=== PATIENT | female | born 1995 | race Caucasian/White ===

== ENCOUNTER 2016-05-24 07:29 | Inpatient (IN) | payer BC, MEDICAID ==
[2016-05-24] MEDS ORDERED: Methylergonovine 0.2 MG/1 ML Amp IM PRN (08:12)
[2016-05-24] MEDS ORDERED: Misoprostol 400 MCG (4 X 100 MCG TAB) RECTAL PRN (08:12)
[2016-05-24] MEDS ORDERED: Sodium Chloride 0.9% 10 ML Syringe FLUSH PRN ×2 (08:12→16:59)
[2016-05-24] MEDS ORDERED: fentaNYL 100 MCG/2 ML SDV IVPUSH PRN (08:12)
[2016-05-24] MEDS ORDERED: Lidocaine 1% 30 ML SDV INJECT PRN (08:12)
[2016-05-24] MEDS ORDERED: Lactated Ringers 500 ML IV ONE (08:12)
[2016-05-24] MEDS ORDERED: Acetaminophen 325 MG Tab PO PRN ×2 (08:12→16:59)
[2016-05-24] MEDS ORDERED: Ondansetron 4 MG/2 ML SDV IV PRN (08:12)
[2016-05-24] MEDS ORDERED: Carboprost Tromethamine 250 MCG/1 ML Amp IM PRN (08:12)
[2016-05-24] MEDS ORDERED: Lactated Ringers 1,000 ML IV SCH (08:15)
--- NOTE | 2016-05-24 08:22 | PCM.LDHP ---
<RayBritta duran - Last Filed: 05/24/16 08:14> L&D History of Present Illness - General Date of Service: 05/24/16 Admit Problem/Dx: Admission Diagnosis/Problem Admission Diagnosis/Problem Source of Information: Patient History Limitations: Reports: No limitations - History of Present Illness Introduction:: Patient is a 20 year old that presents today at 40 and 6 for induction of labor by pitocin. Yesterday at clinic her SVE: Vertex presentation, 3.5 cm, 80% effacement, -2 station. She is currently not feeling any change since yesterday nor is she feeling contractions, We will hold off on rechecking her until the pitocin has been started. 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5 Used Tobacco, but Quit: No Second Hand Smoke Exposure: Yes - Caffeine Use Caffeine Use: Reports: Soda - Recreational Drug Use Recreational Drug Use: No H&P Review of Systems - Review of Systems: Review Of Systems: See Below General: Denies: fever, chills HEENT: Reports: no symptoms Pulmonary: Denies: Shortness of Breath, Wheezing, Cough Cardiovascular: Reports: no symptoms Gastrointestinal: Denies: Constipation (out of the norm), Diarrhea, Nausea, Vomiting Genitourinary: Reports: no symptoms Musculoskeletal: Reports: no symptoms Skin: Reports: no symptoms Psychiatric: Reports: no symptoms L&D Exam - Exam Exam: See Below - Vital Signs Weight: 81.647 kg - OB Specific Contraction Intensity: at this time can not feel them movement: active heart tones: present - Exam General: alert, oriented, cooperative HEENT: Conjunctiva clear, EOMI, Pupils equal Neck: supple Lungs: Clear to auscultation, Normal respiratory effort Cardiovascular: regular rate, regular rhythm, normal S1, normal S2 Abdomen: normal bowel sounds Rectal Exam: Deferred Genitourinary: Deferred Back Exam: normal inspection, full range of motion Extremities: normal inspection. No: edema Skin: warm, dry, intact Neurological: cranial nerves intact (grossly) Psychiatric: alert, normal affect, normal mood - Problem List (1) SNOMED Code(s): 58265282 ICD Code: Z33.1 - STATE, INCIDENTAL Status: Acute Current Visit : Yes Qualifiers: Weeks of gestation: 40 weeks Qualified Code(s): Z3A.40 - 40 weeks gestation of (2) Rubella immune SNOMED Code(s): 570654536 ICD Code: Z78.9 - OTHER SPECIFIED HEALTH STATUS Status: Acute Current Visit: Yes (3) History of anxiety disorder SNOMED Code(s): 314474644 ICD Code: Z86.59 - PERSONAL HISTORY OF OTHER MENTAL AND BEHAVIORAL DISORDERS Status: Acute Current Visit: Yes (4) Hx of herpes genitalis SNOMED Code(s): 793809299 ICD Code: Z86.19 - PERSONAL HISTORY OF OTHER INFECTIOUS AND PARASITIC DISEASES Status: Acute Current Visit: Yes (5) Susceptible to varicella (non-immune), currently SNOMED Code(s): 997822641, 708923729 ICD Code: O09.899 - SUPERVISION OF OTHER HIGH RISK PREGNANCIES, UNSP TRIMESTER; Z28.3 - UNDERIMMUNIZATION STATUS Status: Acute Current Visit: Yes (6) Blood type O+ SNOMED Code(s): 235328773 ICD Code: Z67.40 - TYPE O BLOOD, RH POSITIVE Status: Acute Current Visit : Yes (7) Current every day smoker SNOMED Code(s): 272802125, 667708107 ICD Code: F17.200 - NICOTINE DEPENDENCE, UNSPECIFIED, UNCOMPLICATED Status : Acute Current Visit: Yes Problem List Initiated/Reviewed/Updated: Yes Orders Last 24hrs: Active Orders 24 hr Category Date Time Status CBC W/O DIFF,HEMOGRAM [HEME] Routine Lab 05/24/16 08:05 Received Assessment/Plan Comment:: Assessment 20 y.o. at 40w5d presenting for induction of labor via pitocin Plan: Routine intrapartum cares Pitocin induction per unit protocols AROM when able. <Josette Hunt - Last Filed: 05/24/16 09:35> L&D History of Present Illness - General Admit Problem/Dx: Patient Status Order with Admit Dx/Problem 05/24/16 08:12 Patient Status [ADT] Routine Admission Diagnosis/Problem Admission Diagnosis/Problem care L&D Exam - Vital Signs Vital Signs: Last Vital Signs Temp 36.3 C 05/24/16 07:40 Pulse 109 H 05/24/16 09:00 Resp 16 05/24/16 09:00 BP 126/74 05/24/16 09:00 Pulse Ox 98 05/24/16 07:40 - Patient Data Lab Results last 24 hrs: Laboratory Results - last 24 hr 05/24/16 Range/Units 08:05 WBC 9.5 (5.0-10.0) 10^3/uL RBC 4.60 (4.2-5.4) 10^6/uL Hgb 12.8 (12.0-16.0) g/dL Hct 38.5 (37.0-47.0) % MCV 83.7 (80-100) fL MCH 27.8 (27.0-34.0) pg MCHC 33.2 (33.0-35.0) g/dL Plt Count 196 (150-450) 10^3/uL Result Diagrams: 05/24/16 08:05 Orders Last 24hrs: Active Orders 24 hr Category Date Time Status Patient Status [ADT] Routine ADT 05/24/16 08:12 Active Communication Order [RC] ASDIRECTED Care 05/24/16 08:12 Active Communication Order [RC] ASDIRECTED Care 05/24/16 08:15 Active Communication Order [RC] ASDIRECTED Care 05/24/16 08:15 Active Communication Order [RC] ASDIRECTED Care 05/24/16 08:15 Active Communication Order [RC] ASDIRECTED Care 05/24/16 08:15 Active Heart Tones [RC] PER UNIT ROUTINE Care 05/24/16 08:12 Active Notify Provider Vital Signs OB [RC] ASDIRECTED Care 05/24/16 08:12 Active Notify Provider [RC] PRN Care 05/24/16 08:12 Active Notify Provider [RC] PRN Care 05/24/16 08:15 Active Notify Provider [RC] STAT Care 05/24/16 08:15 Active Pump Management, Intrathecal [RC] ASDIRECTED Care 05/24/16 08:12 Active Up ad Yanelis [RC] ASDIRECTED Care 05/24/16 08:12 Active Vaginal Exam [RC] PRN Care 05/24/16 08:15 Active Vital Signs [RC] PER UNIT ROUTINE Care 05/24/16 08:12 Active Clear Liquid Diet [DIET] Diet 05/24/16 Breakfast Active Acetaminophen [Tylenol] Med 05/24/16 08:12 Active 650 mg PO Q4H PRN Carboprost Tromethamine [Hemabate DS] Med 05/24/16 08:12 Active 250 mcg IM ASDIRECTED PRN Lactated Ringers [Ringers, Lactated] 1,000 ml Med 05/24/16 08:15 Active IV ASDIRECTED Lidocaine 1% [Xylocaine-MPF 1%] Med 05/24/16 08:12 Active 10 ml INJECT ASDIRECTED PRN Methylergonovine [Methergine] Med 05/24/16 08:12 Active 0.2 mg IM ASDIRECTED PRN Misoprostol [Cytotec] Med 05/24/16 08:12 Active 800 mcg RECTAL ASDIRECTED PRN Ondansetron [Zofran] Med 05/24/16 08:12 Active 4 mg IV Q4H PRN Oxytocin/Normal Saline [Pitocin in NS 30 UNIT/500 ML] Med 05/24/16 08:15 Active 30 unit in 500 ml IV TITRATE Sodium Chloride 0.9% [Saline Flush] Med 05/24/16 08:12 Active 10 ml FLUSH ASDIRECTED PRN fentaNYL [Sublimaze] Med 05/24/16 08:12 Active 50 mcg IVPUSH Q1H PRN Saline Lock Insert [OM.PC] Routine Oth 05/24/16 08:12 Ordered Resuscitation Status Routine Resus Stat 05/24/16 08:12 Ordered Medication Orders Acetaminophen (Tylenol) 650 mg PO Q4H PRN PRN Reason: Pain (Mild 1-3) and fever Carboprost Tromethamine (Hemabate Ds) 250 mcg IM ASDIRECTED PRN PRN Reason: HEMORRHAGE Fentanyl (Sublimaze) 50 mcg IVPUSH Q1H PRN PRN Reason: Pain (moderate 4-6) Lactated Ringer's (Ringers, Lactated) 1,000 mls @ 125 mls/hr IV ASDIRECTED EMILY Last Admin: 05/24/16 08:40 Dose: 125 mls/hr Oxytocin/Sodium Chloride (Pitocin In Ns 30 Unit/500 Ml) 30 unit in 500 mls @ 2 mls/hr IV TITRATE EMILY; 2 MUNITS/MIN PRN Reason: Protocol Last Titration: 05/24/16 09:17 Dose: 4 munits/min, 4 mls/hr Admin: 05/24/16 08:41 Dose: 2 munits/min, 2 mls/hr Lidocaine HCl (Xylocaine-Mpf 1%) 10 ml INJECT ASDIRECTED PRN PRN Reason: Perineal Repair Methylergonovine Maleate (Methergine) 0.2 mg IM ASDIRECTED PRN PRN Reason: Hemorrhage Misoprostol (Cytotec) 800 mcg RECTAL ASDIRECTED PRN PRN Reason: Hemorrhage Ondansetron HCl (Zofran) 4 mg IV Q4H PRN PRN Reason: Nausea/Vomiting Sodium Chloride (Saline Flush) 10 ml FLUSH ASDIRECTED PRN PRN Reason: Keep Vein Open Assessment/Plan Comment:: Agree with student assessment and plan. Induction for postdates . Anticipate vaginal delivery. Will proceed with expectant management. Josette Hunt MD
[2016-05-24] MEDS: Oxytocin/Normal Saline 30 UNIT/500 ML BAG IV SCH ×2 (08:41→17:54)
[2016-05-24] MEDS ORDERED: fentaNYL 100 MCG/2 ML SDV IVPUSH ONE ×2 (14:50→16:35)
[2016-05-24] MEDS: Calcium Carbonate 500 MG Tab.Chew PO PRN ×2 (15:01→17:27)
[2016-05-24] MEDS ORDERED: ceFAZolin 2 GM in Premix Bag 1 BAG IV ONE (16:46)
[2016-05-24] MEDS ORDERED: Acetaminophen/HYDROcodone 325-10 MG Tab PO PRN (16:59)
[2016-05-24] MEDS ORDERED: Simethicone 80 MG Tab.Chew PO PRN (16:59)
[2016-05-24] MEDS ORDERED: Oxytocin 10 Units/1 ML SDV IM PRN (16:59)
[2016-05-24] MEDS ORDERED: Benzocaine/Menthol 20%-0.5% Spray 56 GM Canister TOP PRN (16:59)
--- NOTE | 2016-05-24 17:08 | PCM.DEL ---
L & D Note - General Info Date of Service: 05/24/16 Mother's Due Date: 05/19/16 - Delivery Note Labor: augmented by ARM, induced by oxytocin Delivery Outcome: Livebirth Delivery Method: Spontaneous Vaginal Delivery Presentation: Left Occiput Anterior (AKUA) Nuchal cord: present, reduced Anesthesia Type: None Amniotic Fluid Description: Clear Episiotomy Type: None Laceration: none Placenta: intact, manual removal Cord: 3 vessels Estimated blood loss: 800 Resuscitation needed: No [place]: stimulated Score 1 min: 7 Score 5 min: 8 Post Delivery Events: Retained Placenta Delivery Comments (Free Text/Narrative):: 20-year-old presented to L&D around 0800 today for induction of labor for postdates . Her cervix yesterday was 3.5/80/-2. Pitocin was started for induction of labor. Around 1200, membranes were artificially ruptured for small amount of clear fluid. Patient received 2 doses of IV Fentanyl for pain relief. Patient rapidly progressed and was at complete dilation around 1600. She pushed for about 10 minutes before delivering a viable female weighing 4090 grams (4 lb 0 oz) with Apgars of 7 and 8 at 1 and 5 minutes respectively. Delivery of the placenta was delayed, and there was a constant slow trickle of blood with intermittent "gushes" of blood. After 24 minutes, blood loss was estimated to be at about 500 cc so the decision was made to proceed with manual removal of the placenta. Patient was given 100 mcg of Fentanyl. Rectal cytotec, hemabate and methergine were brought to the room to be available if needed. Dr. Garcia was also notified in the event that a D&C would be needed. After the Fentanyl was given, I inserted my right hand and easily grasped the edge of the placenta and removed it. It appeared to be mostly intact with a few possible small fragments missing versus tearing of the placenta from manual removal. Pitocin was started on 999 ml/hr and manual massage was performed. Uterus remained quite boggy so 800 mcg of rectal Cytotec was placed. After replacing gloves, massage of the uterus revealed a continued boggy status so manual exploration was repeated a few small fragments of placenta were removed, along with a couple of moderate sized clots. Uterus then firmed up nicely, and no further active bleeding was noted. Perineum was intact. Patient in stable completion. Induction Criteria - Mccracken Score Mccracken Score Dilation: 3-4 cm Mccracken Score Effacement: >80% Mccracken Score 's Station: -2 Mccracken Score Consistency: Soft Mccracken Score Cervix Position: Posterior Mccracken Score Total: 8 Mccracken Score Presenting Part: Reports: Cephalic - Induction Gestational Age >/= 39 wks: Yes Medical indication: Postdates at 40w5d in a multiparous female Estimated pelvis: Reports: Adequate Reassuring monitoring strip: Yes Absence of tachy systole: Yes - Augmentation Estimated Pelvis: Reports: Adequate weight estimated:: Reports: AGA Reassuring monitoring strip: Yes Absence of tachy systole: Yes - Patient Data Vitals - most recent: Last Vital Signs Temp 36.7 C 05/24/16 13:30 Pulse 94 05/24/16 14:15 Resp 16 05/24/16 14:15 BP 106/63 05/24/16 14:15 Pulse Ox 98 05/24/16 07:40 Weight - most recent: 81.647 kg Lab Results last 24 hrs: Laboratory Results - last 24 hr 05/24/16 Range/Units 08:05 WBC 9.5 (5.0-10.0) 10^3/uL RBC 4.60 (4.2-5.4) 10^6/uL Hgb 12.8 (12.0-16.0) g/dL Hct 38.5 (37.0-47.0) % MCV 83.7 (80-100) fL MCH 27.8 (27.0-34.0) pg MCHC 33.2 (33.0-35.0) g/dL Plt Count 196 (150-450) 10^3/uL Med Orders - Current: Current Medications Calcium Carbonate/Glycine (Tums) 500 mg PO Q2H PRN PRN Reason: gerd Last Admin: 05/24/16 15:01 Dose: 500 mg Carboprost Tromethamine (Hemabate Ds) 250 mcg IM ASDIRECTED PRN PRN Reason: HEMORRHAGE Oxytocin/Sodium Chloride (Pitocin In Ns 30 Unit/500 Ml) 30 unit in 500 mls @ 2 mls/hr IV TITRATE EMILY; 2 MUNITS/MIN PRN Reason: Protocol Last Titration: 05/24/16 14:31 Dose: 12 munits/min, 12 mls/hr Cefazolin Sodium/Dextrose 2 gm (/ Premix) 50 mls @ 100 mls/hr IV ONETIME ONE Stop: 05/24/16 17:15 Methylergonovine Maleate (Methergine) 0.2 mg IM ASDIRECTED PRN PRN Reason: Hemorrhage Misoprostol (Cytotec) 800 mcg RECTAL ASDIRECTED PRN PRN Reason: Hemorrhage Last Admin: 05/24/16 16:43 Dose: 800 mcg Sodium Chloride (Saline Flush) 10 ml FLUSH ASDIRECTED PRN PRN Reason: Keep Vein Open Discontinued Medications Acetaminophen (Tylenol) 650 mg PO Q4H PRN PRN Reason: Pain (Mild 1-3) and fever Fentanyl (Sublimaze) 50 mcg IVPUSH Q1H PRN PRN Reason: Pain (moderate 4-6) Last Admin: 05/24/16 13:30 Dose: 50 mcg Fentanyl (Sublimaze) 100 mcg IVPUSH ONETIME ONE Stop: 05/24/16 14:51 Last Admin: 05/24/16 14:54 Dose: 100 mcg Fentanyl (Sublimaze) 100 mcg IVPUSH ONETIME ONE Stop: 05/24/16 16:36 Last Admin: 05/24/16 16:39 Dose: 100 mcg Lactated Ringer's (Ringers, Lactated) 500 mls @ 999 mls/hr IV .BOLUS ONE Stop: 05/24/16 08:42 Lactated Ringer's (Ringers, Lactated) 1,000 mls @ 125 mls/hr IV ASDIRECTED EMILY Last Admin: 05/24/16 08:40 Dose: 125 mls/hr Lidocaine HCl (Xylocaine-Mpf 1%) 10 ml INJECT ASDIRECTED PRN PRN Reason: Perineal Repair Ondansetron HCl (Zofran) 4 mg IV Q4H PRN PRN Reason: Nausea/Vomiting - Problem List & Annotations (1) hemorrhage SNOMED Code(s): 71506274 Code(s): O72.1 - OTHER IMMEDIATE HEMORRHAGE Status: Acute Current Visit: Yes (2) Retained placenta or membranes SNOMED Code(s): 521229053 Code(s): O73.1 - RETAINED PORTIONS OF PLACENTA AND MEMBRANES, W/O HEMORRHAGE Status: Acute Current Visit: Yes (3) Blood type O+ SNOMED Code(s): 817292280 Code(s): Z67.40 - TYPE O BLOOD, RH POSITIVE Status: Acute Current Visit: Yes (4) Current every day smoker SNOMED Code(s): 023143207, 742440008 Code(s): F17.200 - NICOTINE DEPENDENCE, UNSPECIFIED, UNCOMPLICATED Status: Acute Current Visit: Yes (5) Hx of herpes genitalis SNOMED Code(s): 555431621 Code(s): Z86.19 - PERSONAL HISTORY OF OTHER INFECTIOUS AND PARASITIC DISEASES Status: Acute Current Visit: Yes (6) Rubella immune SNOMED Code(s): 952296672 Code(s): Z78.9 - OTHER SPECIFIED HEALTH STATUS Status: Acute Current Visit: Yes (7) Susceptible to varicella (non-immune), currently SNOMED Code(s): 447541700, 495341068 Code(s): O09.899 - SUPERVISION OF OTHER HIGH RISK PREGNANCIES, UNSP TRIMESTER ; Z28.3 - UNDERIMMUNIZATION STATUS Status: Acute Current Visit: Yes (8) Vaginal delivery SNOMED Code(s): 241240085 Code(s): O80 - ENCOUNTER FOR FULL-TERM UNCOMPLICATED DELIVERY Status: Acute Current Visit: No - Problem List Review Problem List Initiated/Reviewed/Updated: Yes - My Orders Last 24 Hours: My Active Orders 05/24/16 08:12 Patient Status [ADT] Routine Heart Tones [RC] PER UNIT ROUTINE Pump Management, Intrathecal [RC] ASDIRECTED Vital Signs [RC] PER UNIT ROUTINE Carboprost Tromethamine [Hemabate DS] 250 mcg IM ASDIRECTED PRN Methylergonovine [Methergine] 0.2 mg IM ASDIRECTED PRN Misoprostol [Cytotec] 800 mcg RECTAL ASDIRECTED PRN Sodium Chloride 0.9% [Saline Flush] 10 ml FLUSH ASDIRECTED PRN Saline Lock Insert [OM.PC] Routine Resuscitation Status Routine 05/24/16 08:15 Communication Order [RC] ASDIRECTED Communication Order [RC] ASDIRECTED Communication Order [RC] ASDIRECTED Communication Order [RC] ASDIRECTED Notify Provider [RC] PRN Notify Provider [RC] STAT Vaginal Exam [RC] PRN Oxytocin/Normal Saline [Pitocin in NS 30 UNIT/500 ML] 30 unit in 500 ml IV TITRATE 04/07/17 13:53 Calcium Carbonate [Tums] 500 mg PO Q2H PRN 05/24/16 16:46 ceFAZolin [Ancef] 2 gm Premix Bag 1 bag IV ONETIME 05/24/16 16:59 Vital Signs [RC] PFP Acetaminophen [Tylenol] 650 mg PO Q6H PRN Acetaminophen/HYDROcodone [Cascade 325-10 MG] 1 tab PO Q4H PRN Benzocaine/Menthol [Dermoplast Pain Relief Fossil] See Dose Instructions TOP Q4H PRN Docusate Sodium [Colace] 100 mg PO BID PRN Ibuprofen [Motrin] 800 mg PO Q8H PRN Oxytocin [Pitocin] 10 unit IM ONETIME PRN Simethicone 80 mg PO Q4H PRN Sodium Chloride 0.9% [Saline Flush] 10 ml FLUSH ASDIRECTED PRN 05/24/16 17:00 Notify Provider Vital Signs OB [RC] ASDIRECTED Up ad Yanelis [RC] ASDIRECTED Assess Lochia [WOMSER] Per Unit Routine Assess Uterine Involution [WOMSER] Per Unit Routine Breast Pump [WOMSER] Per Unit Routine Ice Therapy [OM.PC] Per Unit Routine Perineal Care [OM.PC] Per Unit Routine Saline Lock Insert [OM.PC] Urgent Sitz Bath [OM.PC] Per Unit Routine 05/24/16 Dinner Regular Diet [DIET] 05/25/16 07:00 CBC W/O DIFF,HEMOGRAM [HEME] Routine 05/25/16 09:00 Vit with Ca/FA/Iron [ Plus Iron] 1 each PO DAILY - Assessment Assessment:: 20-year-old, now , status post --Retained placenta with manual removal -- hemorrhage - Plan Plan:: 1. Initiate routine orders 2. As manual removal was done, will give 1 time dose of 2 grams of Ancef for infection prophylaxis 3. For hemorrhage, will monitor symptoms and repeat hemoglobin tomorrow morning 4. Will consult if needed. 5. Anticipate discharge 05/26/16 Josette Hunt MD
[2016-05-24] MEDS: Docusate Sodium 100 MG Cap PO PRN (20:13)
[2016-05-24] MEDS: Ibuprofen 800 MG Tab PO PRN (20:13)
[2016-05-25] MEDS: Ibuprofen 800 MG Tab PO PRN ×2 (07:43→19:37)
[2016-05-25] MEDS: Prenatal Multivitamin with Calcium/Folic Acid/Iron Tab PO SCH (07:48)
[2016-05-25] MEDS: Docusate Sodium 100 MG Cap PO PRN (07:48)
--- NOTE | 2016-05-25 07:52 | PCM.PNPP ---
[id number] Dx/Problem (Free Text): (1) hemorrhage SNOMED Code(s): 03875992 Code(s): O72.1 - OTHER IMMEDIATE HEMORRHAGE Status: Acute Current Visit: Yes (2) Retained placenta or membranes SNOMED Code(s): 393175365 Code(s): O73.1 - RETAINED PORTIONS OF PLACENTA AND MEMBRANES, W/O HEMORRHAGE Status: Acute Current Visit: Yes (3) Blood type O+ SNOMED Code(s): 989908547 Code(s): Z67.40 - TYPE O BLOOD, RH POSITIVE Status: Acute Current Visit: Yes (4) Current every day smoker SNOMED Code(s): 795835814, 912780528 Code(s): F17.200 - NICOTINE DEPENDENCE, UNSPECIFIED, UNCOMPLICATED Status: Acute Current Visit: Yes (5) Hx of herpes genitalis SNOMED Code(s): 138174020 Code(s): Z86.19 - PERSONAL HISTORY OF OTHER INFECTIOUS AND PARASITIC DISEASES Status: Acute Current Visit: Yes (6) Rubella immune SNOMED Code(s): 038843095 Code(s): Z78.9 - OTHER SPECIFIED HEALTH STATUS Status: Acute Current Visit: Yes (7) Susceptible to varicella (non-immune), currently SNOMED Code(s): 405145618, 879665923 Code(s): O09.899 - SUPERVISION OF OTHER HIGH RISK PREGNANCIES, UNSP TRIMESTER ; Z28.3 - UNDERIMMUNIZATION STATUS Status: Acute Current Visit: Yes (8) Vaginal delivery SNOMED Code(s): 837321908 Code(s): O80 - ENCOUNTER FOR FULL-TERM UNCOMPLICATED DELIVERY Status: Acute Current Visit: No Subjective Update: Patient did well overnight. She did have one spell of light headedness when she got up to quickly from the bath tub, but this quickly resolved and has not happened again. Patient reports being tired but has not other acute concerns at this point in time. she is unsure if she feels well enough to go home today. we will check back with later today. Functional Status: Reports: pain controlled, tolerating diet, ambulating, urinating - Review of Systems General: Denies: Fever HEENT: Reports: no symptoms Pulmonary: Reports: no symptoms. Denies: shortness of breath, cough Cardiovascular: Reports: No Symptoms Gastrointestinal: Reports: No symptoms. Denies: Nausea, Vomiting Genitourinary: Reports: no symptoms Musculoskeletal: Reports: no symptoms Skin: Reports: no symptoms Neurological: Reports: No Symptoms Psychiatric: Reports: no symptoms - General Info Date of Service: 05/25/16 - Patient Data Vital Signs - most recent: Last Vital Signs Temp 98.8 F 05/24/16 20:34 Pulse 94 05/24/16 20:34 Resp 18 05/24/16 20:34 BP 101/49 L 05/24/16 20:34 Pulse Ox 97 05/24/16 20:34 Weight - most recent: 81.647 kg I&O - last 24 hours: Intake & Output 05/24/16 05/25/16 05/25/16 22:59 06:59 14:59 Intake Total 2565 Output Total 1600 Balance 965 Lab Results - last 24 hrs: Laboratory Results - last 24 hr 05/24/16 05/25/16 Range/Units 08:05 06:00 WBC 9.5 14.6 H (5.0-10.0) 10^3/uL RBC 4.60 3.22 L (4.2-5.4) 10^6/uL Hgb 12.8 8.8 L (12.0-16.0) g/dL Hct 38.5 27.1 L (37.0-47.0) % MCV 83.7 84.2 (80-100) fL MCH 27.8 27.3 (27.0-34.0) pg MCHC 33.2 32.5 L (33.0-35.0) g/dL Plt Count 196 176 (150-450) 10^3/uL Med Orders - Current: Current Medications Acetaminophen (Tylenol) 650 mg PO Q6H PRN PRN Reason: mild pain or fever Hydrocodone Bitart/Acetaminophen ([place] 325-10 Mg) 1 tab PO Q4H PRN PRN Reason: Pain (moderate 4-6) Benzocaine/Menthol (Dermoplast Pain Relief Logan) 0 gm TOP Q4H PRN PRN Reason: Perineal comfort measures Calcium Carbonate/Glycine (Tums) 500 mg PO Q2H PRN PRN Reason: gerd Last Admin: 05/24/16 17:27 Dose: 500 mg Carboprost Tromethamine (Hemabate Ds) 250 mcg IM ASDIRECTED PRN PRN Reason: HEMORRHAGE Docusate Sodium (Colace) 100 mg PO BID PRN PRN Reason: Constipation Last Admin: 05/24/16 20:13 Dose: 100 mg Oxytocin/Sodium Chloride (Pitocin In Ns 30 Unit/500 Ml) 30 unit in 500 mls @ 2 mls/hr IV TITRATE EMILY; 2 MUNITS/MIN PRN Reason: Protocol Last Titration: 05/24/16 19:28 Dose: 0 munits/min, 0 mls/hr Ibuprofen (Motrin) 800 mg PO Q8H PRN PRN Reason: Mild Pain or Fever Last Admin: 05/24/16 20:13 Dose: 800 mg Methylergonovine Maleate (Methergine) 0.2 mg IM ASDIRECTED PRN PRN Reason: Hemorrhage Misoprostol (Cytotec) 800 mcg RECTAL ASDIRECTED PRN PRN Reason: Hemorrhage Last Admin: 05/24/16 16:43 Dose: 800 mcg Oxytocin (Pitocin) 10 unit IM ONETIME PRN PRN Reason: Bleeding Prenat Multivit/[place]/Iron/Folic Ac ( Plus Iron) 1 each PO DAILY EMILY Simethicone (Simethicone) 80 mg PO Q4H PRN PRN Reason: Gas Sodium Chloride (Saline Flush) 10 ml FLUSH ASDIRECTED PRN PRN Reason: Keep Vein Open Sodium Chloride (Saline Flush) 10 ml FLUSH ASDIRECTED PRN PRN Reason: Keep Vein Open Discontinued Medications Acetaminophen (Tylenol) 650 mg PO Q4H PRN PRN Reason: Pain (Mild 1-3) and fever Fentanyl (Sublimaze) 50 mcg IVPUSH Q1H PRN PRN Reason: Pain (moderate 4-6) Last Admin: 05/24/16 13:30 Dose: 50 mcg Fentanyl (Sublimaze) 100 mcg IVPUSH ONETIME ONE Stop: 05/24/16 14:51 Last Admin: 05/24/16 14:54 Dose: 100 mcg Fentanyl (Sublimaze) 100 mcg IVPUSH ONETIME ONE Stop: 05/24/16 16:36 Last Admin: 05/24/16 16:39 Dose: 100 mcg Lactated Ringer's (Ringers, Lactated) 500 mls @ 999 mls/hr IV .BOLUS ONE Stop: 05/24/16 08:42 Last Admin: 05/24/16 17:35 Dose: Not Given Lactated Ringer's (Ringers, Lactated) 1,000 mls @ 125 mls/hr IV ASDIRECTED EMILY Last Admin: 05/24/16 08:40 Dose: 125 mls/hr Cefazolin Sodium/Dextrose 2 gm (/ Premix) 50 mls @ 100 mls/hr IV ONETIME ONE Stop: 05/24/16 17:15 Last Admin: 05/24/16 20:04 Dose: 100 mls/hr Lidocaine HCl (Xylocaine-Mpf 1%) 10 ml INJECT ASDIRECTED PRN PRN Reason: Perineal Repair Ondansetron HCl (Zofran) 4 mg IV Q4H PRN PRN Reason: Nausea/Vomiting - Interaction Disposition, : in Room with Family Infant Interaction: Holding Infant Feeding: Bottle Fed Support Person: Significant Other - Recovery Exam Fundal Tone: Firm Fundal Level: At Umbilicus Fundal Placement: Midline Lochia Amount: Scant Lochia Color: Rubra/Red Perineum Description: Intact, Minimal Bruising/Swelling Episiotomy/Laceration: None Bladder Status: Voiding Urinary Elimination: Voided - Exam General: alert, oriented HEENT: Pupils equal Neck: supple Lungs: Clear to auscultation, Normal respiratory effort Cardiovascular: Regular Rate, Regular Rhythm Abdomen: bowel sounds present, soft Extremities: edema (trace) Skin: warm, dry, intact Neurological: no new focal deficit Psy/Mental Status: alert, normal affect, normal mood - Problem List & Annotations (1) SNOMED Code(s): 05183965 Code(s): Z33.1 - STATE, INCIDENTAL Status: Acute Current Visit: Yes Qualifiers: Weeks of gestation: 40 weeks Qualified Code(s): Z3A.40 - 40 weeks gestation of (2) Rubella immune SNOMED Code(s): 490945337 Code(s): Z78.9 - OTHER SPECIFIED HEALTH STATUS Status: Acute Current Visit: Yes (3) History of anxiety disorder SNOMED Code(s): 301496065 Code(s): Z86.59 - PERSONAL HISTORY OF OTHER MENTAL AND BEHAVIORAL DISORDERS Status: Acute Current Visit: Yes (4) Hx of herpes genitalis SNOMED Code(s): 906086499 Code(s): Z86.19 - PERSONAL HISTORY OF OTHER INFECTIOUS AND PARASITIC DISEASES Status: Acute Current Visit: Yes (5) Susceptible to varicella (non-immune), currently SNOMED Code(s): 725265441, 586811982 Code(s): O09.899 - SUPERVISION OF OTHER HIGH RISK PREGNANCIES, UNSP TRIMESTER ; Z28.3 - UNDERIMMUNIZATION STATUS Status: Acute Current Visit: Yes (6) Blood type O+ SNOMED Code(s): 562493916 Code(s): Z67.40 - TYPE O BLOOD, RH POSITIVE Status: Acute Current Visit: Yes (7) Current every day smoker SNOMED Code(s): 721949525, 521500886 Code(s): F17.200 - NICOTINE DEPENDENCE, UNSPECIFIED, UNCOMPLICATED Status: Acute Current Visit: Yes (8) Acute blood loss anemia SNOMED Code(s): 731026034 Code(s): D62 - ACUTE POSTHEMORRHAGIC ANEMIA Status: Acute Current Visit: Yes (9) hemorrhage SNOMED Code(s): 01426745 Code(s): O72.1 - OTHER IMMEDIATE HEMORRHAGE Status: Acute Current Visit: Yes (10) Retained placenta or membranes SNOMED Code(s): 707269933 Code(s): O73.1 - RETAINED PORTIONS OF PLACENTA AND MEMBRANES, W/O HEMORRHAGE Status: Acute Current Visit: Yes (11) Vaginal delivery SNOMED Code(s): 795907359 Code(s): O80 - ENCOUNTER FOR FULL-TERM UNCOMPLICATED DELIVERY Status: Acute Current Visit: No - Problem List Review Problem List Initiated/Reviewed/Updated: Yes - Assessment Assessment:: 20-year-old, now , status post --Retained placenta with manual removal -- hemorrhage --acute blood loss anemia hgb dropped from 12.8 to 8.8 - Plan Plan:: 1.Continue routine orders 2. As manual removal was done, 1 time dose of 2 grams of Ancef for infection prophylaxis was given. Continue monitoring vitals for sign of infection 3. For hemorrhage, and hgb dropped to 8.8 will begin Iron supplementation and continue to monitor symptoms 4. Will consult if needed. 5. Anticipate discharge 05/26/16 will check back if she wants earlier discharge. Britta Bell MSIII <Josette Hunt Nu - Last Filed: 05/25/16 08:01> - Patient Data Vital Signs - most recent: Last Vital Signs Temp 37.1 C 05/24/16 20:34 Pulse 94 05/24/16 20:34 Resp 18 05/24/16 20:34 BP 101/49 L 05/24/16 20:34 Pulse Ox 97 05/24/16 20:34 I&O - last 24 hours: Intake & Output 05/24/16 05/25/16 05/25/16 22:59 06:59 14:59 Intake Total 2565 Output Total 1600 Balance 965 Lab Results - last 24 hrs: Laboratory Results - last 24 hr 05/24/16 05/25/16 Range/Units 08:05 06:00 WBC 9.5 14.6 H (5.0-10.0) 10^3/uL RBC 4.60 3.22 L (4.2-5.4) 10^6/uL Hgb 12.8 8.8 L (12.0-16.0) g/dL Hct 38.5 27.1 L (37.0-47.0) % MCV 83.7 84.2 (80-100) fL MCH 27.8 27.3 (27.0-34.0) pg MCHC 33.2 32.5 L (33.0-35.0) g/dL Plt Count 196 176 (150-450) 10^3/uL Med Orders - Current: Current Medications Acetaminophen (Tylenol) 650 mg PO Q6H PRN PRN Reason: mild pain or fever Hydrocodone Bitart/Acetaminophen ([place] 325-10 Mg) 1 tab PO Q4H PRN PRN Reason: Pain (moderate 4-6) Benzocaine/Menthol (Dermoplast Pain Relief [place]) 0 gm TOP Q4H PRN PRN Reason: Perineal comfort measures Calcium Carbonate/Glycine (Tums) 500 mg PO Q2H PRN PRN Reason: gerd Last Admin: 05/24/16 17:27 Dose: 500 mg Carboprost Tromethamine (Hemabate Ds) 250 mcg IM ASDIRECTED PRN PRN Reason: HEMORRHAGE Docusate Sodium (Colace) 100 mg PO BID PRN PRN Reason: Constipation Last Admin: 05/25/16 07:48 Dose: 100 mg Oxytocin/Sodium Chloride (Pitocin In Ns 30 Unit/500 Ml) 30 unit in 500 mls @ 2 mls/hr IV TITRATE EMILY; 2 MUNITS/MIN PRN Reason: Protocol Last Titration: 05/24/16 19:28 Dose: 0 munits/min, 0 mls/hr Ibuprofen (Motrin) 800 mg PO Q8H PRN PRN Reason: Mild Pain or Fever Last Admin: 05/25/16 07:43 Dose: 800 mg Methylergonovine Maleate (Methergine) 0.2 mg IM ASDIRECTED PRN PRN Reason: Hemorrhage Misoprostol (Cytotec) 800 mcg RECTAL ASDIRECTED PRN PRN Reason: Hemorrhage Last Admin: 05/24/16 16:43 Dose: 800 mcg Oxytocin (Pitocin) 10 unit IM ONETIME PRN PRN Reason: Bleeding Prenat Multivit/[place]/Iron/Folic Ac ( Plus Iron) 1 each PO DAILY EMILY Simethicone (Simethicone) 80 mg PO Q4H PRN PRN Reason: Gas Sodium Chloride (Saline Flush) 10 ml FLUSH ASDIRECTED PRN PRN Reason: Keep Vein Open Sodium Chloride (Saline Flush) 10 ml FLUSH ASDIRECTED PRN PRN Reason: Keep Vein Open Discontinued Medications Acetaminophen (Tylenol) 650 mg PO Q4H PRN PRN Reason: Pain (Mild 1-3) and fever Fentanyl (Sublimaze) 50 mcg IVPUSH Q1H PRN PRN Reason: Pain (moderate 4-6) Last Admin: 05/24/16 13:30 Dose: 50 mcg Fentanyl (Sublimaze) 100 mcg IVPUSH ONETIME ONE Stop: 05/24/16 14:51 Last Admin: 05/24/16 14:54 Dose: 100 mcg Fentanyl (Sublimaze) 100 mcg IVPUSH ONETIME ONE Stop: 05/24/16 16:36 Last Admin: 05/24/16 16:39 Dose: 100 mcg Lactated Ringer's (Ringers, Lactated) 500 mls @ 999 mls/hr IV .BOLUS ONE Stop: 05/24/16 08:42 Last Admin: 05/24/16 17:35 Dose: Not Given Lactated Ringer's (Ringers, Lactated) 1,000 mls @ 125 mls/hr IV ASDIRECTED EMILY Last Admin: 05/24/16 08:40 Dose: 125 mls/hr Cefazolin Sodium/Dextrose 2 gm (/ Premix) 50 mls @ 100 mls/hr IV ONETIME ONE Stop: 05/24/16 17:15 Last Admin: 05/24/16 20:04 Dose: 100 mls/hr Lidocaine HCl (Xylocaine-Mpf 1%) 10 ml INJECT ASDIRECTED PRN PRN Reason: Perineal Repair Ondansetron HCl (Zofran) 4 mg IV Q4H PRN PRN Reason: Nausea/Vomiting - Problem List & Annotations (1) hemorrhage SNOMED Code(s): 95863870 Code(s): O72.1 - OTHER IMMEDIATE HEMORRHAGE Status: Acute Current Visit: Yes (2) Retained placenta or membranes SNOMED Code(s): 853553418 Code(s): O73.1 - RETAINED PORTIONS OF PLACENTA AND MEMBRANES, W/O HEMORRHAGE Status: Acute Current Visit: Yes (3) Blood type O+ SNOMED Code(s): 640116224 Code(s): Z67.40 - TYPE O BLOOD, RH POSITIVE Status: Acute Current Visit: Yes (4) Current every day smoker SNOMED Code(s): 430492208, 611806541 Code(s): F17.200 - NICOTINE DEPENDENCE, UNSPECIFIED, UNCOMPLICATED Status: Acute Current Visit: Yes (5) Hx of herpes genitalis SNOMED Code(s): 571238751 Code(s): Z86.19 - PERSONAL HISTORY OF OTHER INFECTIOUS AND PARASITIC DISEASES Status: Acute Current Visit: Yes (6) Rubella immune SNOMED Code(s): 335218458 Code(s): Z78.9 - OTHER SPECIFIED HEALTH STATUS Status: Acute Current Visit: Yes (7) Susceptible to varicella (non-immune), currently SNOMED Code(s): 810869612, 975395277 Code(s): O09.899 - SUPERVISION OF OTHER HIGH RISK PREGNANCIES, UNSP TRIMESTER ; Z28.3 - UNDERIMMUNIZATION STATUS Status: Acute Current Visit: Yes (8) Vaginal delivery SNOMED Code(s): 016910545 Code(s): O80 - ENCOUNTER FOR FULL-TERM UNCOMPLICATED DELIVERY Status: Acute Current Visit: No - My Orders Last 24 Hours: My Active Orders 05/24/16 08:12 Patient Status [ADT] Routine Heart Tones [RC] PER UNIT ROUTINE Pump Management, Intrathecal [RC] ASDIRECTED Vital Signs [RC] PER UNIT ROUTINE Carboprost Tromethamine [Hemabate DS] 250 mcg IM ASDIRECTED PRN Methylergonovine [Methergine] 0.2 mg IM ASDIRECTED PRN Misoprostol [Cytotec] 800 mcg RECTAL ASDIRECTED PRN Sodium Chloride 0.9% [Saline Flush] 10 ml FLUSH ASDIRECTED PRN Saline Lock Insert [OM.PC] Routine Resuscitation Status Routine 05/24/16 08:15 Oxytocin/Normal Saline [Pitocin in NS 30 UNIT/500 ML] 30 unit in 500 ml IV TITRATE 05/24/16 13:53 Calcium Carbonate [Tums] 500 mg PO Q2H PRN 05/24/16 16:59 Vital Signs [RC] PFP Acetaminophen [Tylenol] 650 mg PO Q6H PRN Acetaminophen/HYDROcodone [[place] 325-10 MG] 1 tab PO Q4H PRN Benzocaine/Menthol [Dermoplast Pain Relief [place]] See Dose Instructions TOP Q4H PRN Docusate Sodium [Colace] 100 mg PO BID PRN Ibuprofen [Motrin] 800 mg PO Q8H PRN Oxytocin [Pitocin] 10 unit IM ONETIME PRN Simethicone 80 mg PO Q4H PRN Sodium Chloride 0.9% [Saline Flush] 10 ml FLUSH ASDIRECTED PRN 05/24/16 17:00 Notify Provider Vital Signs OB [RC] ASDIRECTED Up ad Yanelis [RC] ASDIRECTED Assess Lochia [WOMSER] Per Unit Routine Assess Uterine Involution [WOMSER] Per Unit Routine Breast Pump [WOMSER] Per Unit Routine Ice Therapy [OM.PC] Per Unit Routine Perineal Care [OM.PC] Per Unit Routine Saline Lock Insert [OM.PC] Urgent Sitz Bath [OM.PC] Per Unit Routine 05/24/16 Dinner Regular Diet [DIET] 05/25/16 09:00 Vit with Ca/FA/Iron [ Plus Iron] 1 each PO DAILY - Plan Plan:: Agree with student assessment and plan. Bleeding has been appropriate. She is bottle feeding. Will start iron twice daily today. Will repeat CBC tomorrow morning if patient is not discharged. Josette Hunt MD
[2016-05-26] MEDS: Prenatal Multivitamin with Calcium/Folic Acid/Iron Tab PO SCH (09:11)
[2016-05-26] MEDS: Ibuprofen 800 MG Tab PO PRN (09:11)
[2016-05-26 09:27] VITALS: BP 111/45
--- NOTE | 2016-05-26 11:16 | PCM.DCSUM1 ---
[id number] Text/Narrative:: Patient has faired well post delivery she did suffer from acute blood loss anemia where her hgb dropped from 12.8 to 8.8 on day 2 of admission but has been asymptomatic. Brief History: Patient is a 20-year-old, now , status post with the following delivery complications. --Retained placenta with manual removal. -- hemorrhage. --acute blood loss anemia hgb dropped from 12.8 to 8.8 - Discharge Data Discharge Date: 05/26/16 Discharge Disposition: Home, Self-Care 01 Condition: Good - Discharge Diagnosis/Problem(s) (1) SNOMED Code(s): 42580560 ICD Code: Z33.1 - STATE, INCIDENTAL Status: Acute Current Visit : Yes Qualifiers: Weeks of gestation: 40 weeks Qualified Code(s): Z3A.40 - 40 weeks gestation of (2) Rubella immune SNOMED Code(s): 272237211 ICD Code: Z78.9 - OTHER SPECIFIED HEALTH STATUS Status: Acute Current Visit: Yes (3) History of anxiety disorder SNOMED Code(s): 059322848 ICD Code: Z86.59 - PERSONAL HISTORY OF OTHER MENTAL AND BEHAVIORAL DISORDERS Status: Acute Current Visit: Yes (4) Hx of herpes genitalis SNOMED Code(s): 136133043 ICD Code: Z86.19 - PERSONAL HISTORY OF OTHER INFECTIOUS AND PARASITIC DISEASES Status: Acute Current Visit: Yes (5) Susceptible to varicella (non-immune), currently SNOMED Code(s): 888577870, 911044235 ICD Code: O09.899 - SUPERVISION OF OTHER HIGH RISK PREGNANCIES, UNSP TRIMESTER; Z28.3 - UNDERIMMUNIZATION STATUS Status: Acute Current Visit: Yes (6) Blood type O+ SNOMED Code(s): 006518368 ICD Code: Z67.40 - TYPE O BLOOD, RH POSITIVE Status: Acute Current Visit : Yes (7) Current every day smoker SNOMED Code(s): 131574598, 267655769 ICD Code: F17.200 - NICOTINE DEPENDENCE, UNSPECIFIED, UNCOMPLICATED Status : Acute Current Visit: Yes (8) Acute blood loss anemia SNOMED Code(s): 955332865 ICD Code: D62 - ACUTE POSTHEMORRHAGIC ANEMIA Status: Acute Current Visit : Yes (9) hemorrhage SNOMED Code(s): 08279361 ICD Code: O72.1 - OTHER IMMEDIATE HEMORRHAGE Status: Acute Current Visit: Yes (10) Retained placenta or membranes SNOMED Code(s): 394622869 ICD Code: O73.1 - RETAINED PORTIONS OF PLACENTA AND MEMBRANES, W/O HEMORRHAGE Status: Acute Current Visit: Yes (11) Vaginal delivery SNOMED Code(s): 527210269 ICD Code: O80 - ENCOUNTER FOR FULL-TERM UNCOMPLICATED DELIVERY Status: Acute Current Visit: No - Patient Instructions Diet: Usual Diet as Tolerated Activity: Apply Ice, As Tolerated, No Strenuous Activities (Pelvic rest for 6 weeks) Driving: [place] Drive Today Showering/Bathing: June Shower Notify Provider of: Fever, Increased Pain, Swelling and Redness, Nausea and/or Vomiting - Discharge Plan Prescriptions/Med Rec: Ferrous Sulfate 325 mg PO BID 45 Days Home Medications: Home Meds Vits #90/Iron Fum/FA [ Formula] 1 each PO DAILY 02/26/13 [ History] Acetaminophen [Tylenol] 650 mg PO Q6H PRN #0 tablet 05/26/16 [Rx] Docusate Sodium [Colace] 100 mg PO BID PRN #0 cap 05/26/16 [Rx] Ferrous Sulfate 325 mg PO BID 45 Days 05/26/16 [Rx] Ibuprofen [IJD: Ibuprofen] 800 mg PO Q8H PRN #0 tablet 05/26/16 [Rx] Patient Handouts: Home Care Instructions for Mom, Vaginal Delivery, Care After - Discharge Summary/Plan Comment Discharge Summary/Plan Comment: Discharge today 05/26/16 to home with self care. Maintain pelvic rest until seen in clinic for care. - General Info Date of Service: 05/26/16 Admission Dx/Problem (Free Text: (1) hemorrhage SNOMED Code(s): 11516316 Code(s): O72.1 - OTHER IMMEDIATE HEMORRHAGE Status: Acute Current Visit: Yes (2) Retained placenta or membranes SNOMED Code(s): 357959117 Code(s): O73.1 - RETAINED PORTIONS OF PLACENTA AND MEMBRANES, W/O HEMORRHAGE Status: Acute Current Visit: Yes (3) Blood type O+ SNOMED Code(s): 984655163 Code(s): Z67.40 - TYPE O BLOOD, RH POSITIVE Status: Acute Current Visit: Yes (4) Current every day smoker SNOMED Code(s): 907603759, 896563196 Code(s): F17.200 - NICOTINE DEPENDENCE, UNSPECIFIED, UNCOMPLICATED Status: Acute Current Visit: Yes (5) Hx of herpes genitalis SNOMED Code(s): 548180236 Code(s): Z86.19 - PERSONAL HISTORY OF OTHER INFECTIOUS AND PARASITIC DISEASES Status: Acute Current Visit: Yes (6) Rubella immune SNOMED Code(s): 933483516 Code(s): Z78.9 - OTHER SPECIFIED HEALTH STATUS Status: Acute Current Visit: Yes (7) Susceptible to varicella (non-immune), currently SNOMED Code(s): 559608355, 898025492 Code(s): O09.899 - SUPERVISION OF OTHER HIGH RISK PREGNANCIES, UNSP TRIMESTER ; Z28.3 - UNDERIMMUNIZATION STATUS Status: Acute Current Visit: Yes (8) Vaginal delivery SNOMED Code(s): 158449667 Code(s): O80 - ENCOUNTER FOR FULL-TERM UNCOMPLICATED DELIVERY Status: Acute Current Visit: No Subjective Update: Patient continues to do well. Patient reports her back hurting but attributes this to being uncomfortable in hospital bed. We discussed umbilical cord care and formula mixing with tap water as she lives in [facility]. Paperwork for work has been filled out at the request of the patient and she is ready to go home today. Functional Status: Reports: pain controlled, tolerating diet, ambulating, urinating - Review of Systems General: Reports: No Symptoms. Denies: Fever, Chills HEENT: Reports: no symptoms Pulmonary: Reports: no symptoms. Denies: shortness of breath, cough, wheezing Cardiovascular: Reports: No Symptoms Gastrointestinal: Reports: No symptoms. Denies: Constipation, Diarrhea, Nausea , Vomiting Genitourinary: Reports: no symptoms Musculoskeletal: Reports: back pain (attributes this to hospital bed) Skin: Reports: no symptoms Neurological: Reports: No Symptoms Psychiatric: Reports: no symptoms - Patient Data Vitals - Most Recent: Last Vital Signs Temp 97.8 F 05/26/16 09:00 Pulse 92 05/26/16 09:00 Resp 16 05/26/16 09:00 BP 111/45 L 05/26/16 09:00 Pulse Ox 98 05/26/16 09:00 Weight - Most Recent: 81.647 kg Med Orders - Current: Current Medications Acetaminophen (Tylenol) 650 mg PO Q6H PRN PRN Reason: mild pain or fever Hydrocodone Bitart/Acetaminophen ([place] 325-10 Mg) 1 tab PO Q4H PRN PRN Reason: Pain (moderate 4-6) Benzocaine/Menthol (Dermoplast Pain Relief [place]) 0 gm TOP Q4H PRN PRN Reason: Perineal comfort measures Calcium Carbonate/Glycine (Tums) 500 mg PO Q2H PRN PRN Reason: gerd Last Admin: 05/24/16 17:27 Dose: 500 mg Carboprost Tromethamine (Hemabate Ds) 250 mcg IM ASDIRECTED PRN PRN Reason: HEMORRHAGE Docusate Sodium (Colace) 100 mg PO BID PRN PRN Reason: Constipation Last Admin: 05/25/16 07:48 Dose: 100 mg Oxytocin/Sodium Chloride (Pitocin In Ns 30 Unit/500 Ml) 30 unit in 500 mls @ 2 mls/hr IV TITRATE EMILY; 2 MUNITS/MIN PRN Reason: Protocol Last Titration: 05/24/16 19:28 Dose: 0 munits/min, 0 mls/hr Ibuprofen (Motrin) 800 mg PO Q8H PRN PRN Reason: Mild Pain or Fever Last Admin: 05/26/16 09:11 Dose: 800 mg Methylergonovine Maleate (Methergine) 0.2 mg IM ASDIRECTED PRN PRN Reason: Hemorrhage Misoprostol (Cytotec) 800 mcg RECTAL ASDIRECTED PRN PRN Reason: Hemorrhage Last Admin: 05/24/16 16:43 Dose: 800 mcg Oxytocin (Pitocin) 10 unit IM ONETIME PRN PRN Reason: Bleeding Prenat Multivit/Director Professional [employer]/Iron/Folic Ac ( Plus Iron) 1 each PO DAILY EMILY Last Admin: 05/26/16 09:11 Dose: 1 each Simethicone (Simethicone) 80 mg PO Q4H PRN PRN Reason: Gas Sodium Chloride (Saline Flush) 10 ml FLUSH ASDIRECTED PRN PRN Reason: Keep Vein Open Sodium Chloride (Saline Flush) 10 ml FLUSH ASDIRECTED PRN PRN Reason: Keep Vein Open Discontinued Medications Acetaminophen (Tylenol) 650 mg PO Q4H PRN PRN Reason: Pain (Mild 1-3) and fever Fentanyl (Sublimaze) 50 mcg IVPUSH Q1H PRN PRN Reason: Pain (moderate 4-6) Last Admin: 05/24/16 13:30 Dose: 50 mcg Fentanyl (Sublimaze) 100 mcg IVPUSH ONETIME ONE Stop: 05/24/16 14:51 Last Admin: 05/24/16 14:54 Dose: 100 mcg Fentanyl (Sublimaze) 100 mcg IVPUSH ONETIME ONE Stop: 05/24/16 16:36 Last Admin: 05/24/16 16:39 Dose: 100 mcg Lactated Ringer's (Ringers, Lactated) 500 mls @ 999 mls/hr IV .BOLUS ONE Stop: 05/24/16 08:42 Last Admin: 05/24/16 17:35 Dose: Not Given Lactated Ringer's (Ringers, Lactated) 1,000 mls @ 125 mls/hr IV ASDIRECTED EMILY Last Admin: 05/24/16 08:40 Dose: 125 mls/hr Cefazolin Sodium/Dextrose 2 gm (/ Premix) 50 mls @ 100 mls/hr IV ONETIME ONE Stop: 05/24/16 17:15 Last Admin: 05/24/16 20:04 Dose: 100 mls/hr Lidocaine HCl (Xylocaine-Mpf 1%) 10 ml INJECT ASDIRECTED PRN PRN Reason: Perineal Repair Ondansetron HCl (Zofran) 4 mg IV Q4H PRN PRN Reason: Nausea/Vomiting - Exam General: Reports: alert, oriented, cooperative HEENT: Reports: Pupils equal, EOMI, Mucous membr. moist/pink Neck: Reports: supple Lungs: Reports: Clear to auscultation, Normal respiratory effort Cardiovascular: Reports: Regular Rate, Regular Rhythm Abdomen: Reports: bowel sounds present, soft, no distension (Female) Exam: Deferred Rectal (Female) Exam: Deferred Back Exam: Reports: normal inspection, full range of motion Extremities: Reports: no edema, normal pulses Skin: Reports: warm, dry, intact Neurological: Reports: no new focal deficit Psy/Mental Status: Reports: alert, normal affect, normal mood *Q Meaningful Use (DIS) - VTE *Q VTE Criteria *Q: - Stroke *Q Stroke Criteria *Q: - AMI *Q AMI Criteria *Q: <Josette Hunt - Last Filed: 05/26/16 11:53> Discharge Summary - Discharge Diagnosis/Problem(s) (1) hemorrhage SNOMED Code(s): 38173079 ICD Code: O72.1 - OTHER IMMEDIATE HEMORRHAGE Status: Acute Current Visit: Yes (2) Retained placenta or membranes SNOMED Code(s): 046274288 ICD Code: O73.1 - RETAINED PORTIONS OF PLACENTA AND MEMBRANES, W/O HEMORRHAGE Status: Acute Current Visit: Yes (3) Blood type O+ SNOMED Code(s): 214462192 ICD Code: Z67.40 - TYPE O BLOOD, RH POSITIVE Status: Acute Current Visit : Yes (4) Current every day smoker SNOMED Code(s): 914260304, 805410102 ICD Code: F17.200 - NICOTINE DEPENDENCE, UNSPECIFIED, UNCOMPLICATED Status : Acute Current Visit: Yes (5) Hx of herpes genitalis SNOMED Code(s): 131255445 ICD Code: Z86.19 - PERSONAL HISTORY OF OTHER INFECTIOUS AND PARASITIC DISEASES Status: Acute Current Visit: Yes (6) Rubella immune SNOMED Code(s): 999818157 ICD Code: Z78.9 - OTHER SPECIFIED HEALTH STATUS Status: Acute Current Visit: Yes (7) Susceptible to varicella (non-immune), currently SNOMED Code(s): 424846541, 871549517 ICD Code: O09.899 - SUPERVISION OF OTHER HIGH RISK PREGNANCIES, UNSP TRIMESTER; Z28.3 - UNDERIMMUNIZATION STATUS Status: Acute Current Visit: Yes (8) Vaginal delivery SNOMED Code(s): 125197027 ICD Code: O80 - ENCOUNTER FOR FULL-TERM UNCOMPLICATED DELIVERY Status: Acute Current Visit: No - Discharge Summary/Plan Comment Discharge Summary/Plan Comment: Agree with student assessment and plan. Patient to take 325 mg ferrous sulfate twice daily until 6 week visit. No dizziness or lightheadedness over the past 24 hours. She is feeling well. [place] paperwork completed. Follow-up with me in 6 weeks for visit or sooner as needed. Josette Hunt MD - Patient Data Vitals - Most Recent: Last Vital Signs Temp 36.6 C 05/26/16 09:00 Pulse 92 05/26/16 09:00 Resp 16 05/26/16 09:00 BP 111/45 L 05/26/16 09:00 Pulse Ox 98 05/26/16 09:00 Med Orders - Current: Current Medications Acetaminophen (Tylenol) 650 mg PO Q6H PRN PRN Reason: mild pain or fever Hydrocodone Bitart/Acetaminophen ([place] 325-10 Mg) 1 tab PO Q4H PRN PRN Reason: Pain (moderate 4-6) Benzocaine/Menthol (Dermoplast Pain Relief [place]) 0 gm TOP Q4H PRN PRN Reason: Perineal comfort measures Calcium Carbonate/Glycine (Tums) 500 mg PO Q2H PRN PRN Reason: gerd Last Admin: 05/24/16 17:27 Dose: 500 mg Carboprost Tromethamine (Hemabate Ds) 250 mcg IM ASDIRECTED PRN PRN Reason: HEMORRHAGE Docusate Sodium (Colace) 100 mg PO BID PRN PRN Reason: Constipation Last Admin: 05/25/16 07:48 Dose: 100 mg Oxytocin/Sodium Chloride (Pitocin In Ns 30 Unit/500 Ml) 30 unit in 500 mls @ 2 mls/hr IV TITRATE EMILY; 2 MUNITS/MIN PRN Reason: Protocol Last Titration: 05/24/16 19:28 Dose: 0 munits/min, 0 mls/hr Ibuprofen (Motrin) 800 mg PO Q8H PRN PRN Reason: Mild Pain or Fever Last Admin: 05/26/16 09:11 Dose: 800 mg Methylergonovine Maleate (Methergine) 0.2 mg IM ASDIRECTED PRN PRN Reason: Hemorrhage Misoprostol (Cytotec) 800 mcg RECTAL ASDIRECTED PRN PRN Reason: Hemorrhage Last Admin: 05/24/16 16:43 Dose: 800 mcg Oxytocin (Pitocin) 10 unit IM ONETIME PRN PRN Reason: Bleeding Prenat Multivit/Rock/Iron/Folic Ac ( Plus Iron) 1 each PO DAILY EMILY Last Admin: 05/26/16 09:11 Dose: 1 each Simethicone (Simethicone) 80 mg PO Q4H PRN PRN Reason: Gas Sodium Chloride (Saline Flush) 10 ml FLUSH ASDIRECTED PRN PRN Reason: Keep Vein Open Sodium Chloride (Saline Flush) 10 ml FLUSH ASDIRECTED PRN PRN Reason: Keep Vein Open Discontinued Medications Acetaminophen (Tylenol) 650 mg PO Q4H PRN PRN Reason: Pain (Mild 1-3) and fever Fentanyl (Sublimaze) 50 mcg IVPUSH Q1H PRN PRN Reason: Pain (moderate 4-6) Last Admin: 05/24/16 13:30 Dose: 50 mcg Fentanyl (Sublimaze) 100 mcg IVPUSH ONETIME ONE Stop: 05/24/16 14:51 Last Admin: 05/24/16 14:54 Dose: 100 mcg Fentanyl (Sublimaze) 100 mcg IVPUSH ONETIME ONE Stop: 05/24/16 16:36 Last Admin: 05/24/16 16:39 Dose: 100 mcg Lactated Ringer's (Ringers, Lactated) 500 mls @ 999 mls/hr IV .BOLUS ONE Stop: 05/24/16 08:42 Last Admin: 05/24/16 17:35 Dose: Not Given Lactated Ringer's (Ringers, Lactated) 1,000 mls @ 125 mls/hr IV ASDIRECTED EMILY Last Admin: 05/24/16 08:40 Dose: 125 mls/hr Cefazolin Sodium/Dextrose 2 gm (/ Premix) 50 mls @ 100 mls/hr IV ONETIME ONE Stop: 05/24/16 17:15 Last Admin: 05/24/16 20:04 Dose: 100 mls/hr Lidocaine HCl (Xylocaine-Mpf 1%) 10 ml INJECT ASDIRECTED PRN PRN Reason: Perineal Repair Ondansetron HCl (Zofran) 4 mg IV Q4H PRN PRN Reason: Nausea/Vomiting *Q Meaningful Use (DIS) - VTE *Q VTE Criteria *Q: - Stroke *Q Stroke Criteria *Q: - AMI *Q AMI Criteria *Q:
== END 2016-05-26 12:15 | disposition home or self-care (01) | DRG 541 ==
LOC: DL.OBCHECK 07:29 → DL.OB 07:37 → OBSVTOIN 16:10 → DL.OB 16:10
PROVIDERS: ADMIT Family Medicine; ATTEND Family Medicine
PROC: 10E0XZZ Delivery of Products of Conception, External Approach (ICD-10-PCS; principal; 2016-05-24)
PROC: 10D17ZZ Extraction of Products of Conception, Retained, Via Natural or Artificial Opening (ICD-10-PCS; 2016-05-24)
PROC: 3E033VJ Introduction of Other Hormone into Peripheral Vein, Percutaneous Approach (ICD-10-PCS; 2016-05-24)
DX: O72.0 Third-stage hemorrhage (principal); O98.32 Other infections with a predominantly sexual mode of transmission complicating childbirth; O90.81 Anemia of the puerperium; O99.334 Smoking (tobacco) complicating childbirth; O48.0 Post-term pregnancy; D62 Acute posthemorrhagic anemia; Z79.899 Other long term (current) drug therapy; A60.04 Herpesviral vulvovaginitis; Z86.59 Personal history of other mental and behavioral disorders; F17.210 Nicotine dependence, cigarettes, uncomplicated; Z3A.40 40 weeks gestation of pregnancy; Z37.0 Single live birth
CPT/HCPCS: 36415; 85027; A9270-GY; J0690; J2590; J3010; J7120

== ENCOUNTER 2017-01-15 02:42 | Emergency (ER) | payer BC, MEDICAID ==
[2017-01-15] MEDS ORDERED: Magnesium Citrate Solution 296 ML Bottle PO ONE (02:43)
[2017-01-15] MEDS ORDERED: Iopamidol 612 MG/ML 75 ML Bottle IVPUSH ONE (03:29)
[2017-01-15 03:34] LABS: CHLORIDE,CL 107 mmol/L (101-111); SODIUM,NA 142 mmol/L (135-145)
[2017-01-15] MEDS ORDERED: Magnesium Citrate Solution 296 ML Bottle ONE (04:34)
--- NOTE | 2017-01-15 04:34 | EDM.PDOC ---
ED HPI GENERAL MEDICAL PROBLEM - General Chief Complaint: Abdominal Pain Stated Complaint: ABD PAIN [id number] Time Seen by Provider: 01/15/17 02:50 Source of Information: Reports: Patient History Limitations: Reports: No Limitations - History of Present Illness INITIAL COMMENTS - FREE TEXT/NARRATIVE: C/o severe lower abdominal pain since 0200. No fever or chills, No vomiting, No urinary c/o, LMP one month ago. IUD. Last bowel movement last leandra. 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: Reports: Other Musculoskeletal History: HIsotry of muscle spasm Psychiatric History: Reports: Anxiety - Infectious Disease History Infectious Disease History: Reports: Herpes Social & Family History - Family History Family Medical History: Noncontributory Other Cardiac Family History: MGDuran had heart disease of unknown kind in her 60s Endocrine/Metabolic: Reports: Diabetes, type II Oncologic: Reports: Renal - Tobacco Use Smoking Status *Q: Current Every Day Smoker Years of Tobacco use: 9 Packs/Tins Daily: 0.5 Used Tobacco, but Quit: No Second Hand Smoke Exposure: Yes - Caffeine Use Caffeine Use: Reports: Tea - Recreational Drug Use Recreational Drug Use: No ED ROS GENERAL - Review of Systems Review Of Systems: ROS reveals no pertinent complaints other than HPI. ED EXAM, GI/ABD - Physical Exam Exam: See Below Exam Limited By: No Limitations General Appearance: Alert, Mild Distress Ears: Normal External Exam Nose: Normal Inspection Throat/Mouth: Normal Inspection, Normal Voice Head: Atraumatic, Normocephalic Neck: Normal Inspection, Full Range of Motion Cardiovascular: Normal Peripheral Pulses, Regular Rate, Rhythm GI/Abdominal Exam: Normal Bowel Sounds, Soft, Tender (mid lower and RLQ with palpation) Back Exam: Normal Inspection Extremities: Normal Inspection, Normal Range of Motion Neurological: Alert, Oriented Psychiatric: Normal Affect Skin Exam: Warm, Dry, Intact, Normal Color Course - Vital Signs Last Recorded V/S: Last Vital Signs Temp 97.7 F 01/15/17 02:48 Pulse 95 01/15/17 02:48 Resp 16 01/15/17 02:48 BP 101/68 01/15/17 02:48 Pulse Ox 99 01/15/17 02:48 - Orders/Labs/Meds Orders: Active Orders 24 hr Category Date Time Status Abdomen Pelvis w Cont [CT] Urgent Exams 01/15/17 03:28 Taken Labs: Laboratory Tests 01/15/17 01/15/17 01/15/17 Range/Units 03:05 03:05 03:05 WBC 9.0 (5.0-10.0) 10^3/uL RBC 5.24 (4.2-5.4) 10^6/uL Hgb 14.2 D (12.0-16.0) g/dL Hct 42.5 (37.0-47.0) % MCV 81.1 D (80-100) fL MCH 27.1 (27.0-34.0) pg MCHC 33.4 (33.0-35.0) g/dL Plt Count 225 (150-450) 10^3/uL Neut % (Auto) 54.2 (42.2-75.2) % Lymph % (Auto) 30.9 (20.5-50.1) % [place] % (Auto) 11.7 H (2-8) % Eos % (Auto) 2.9 (1.0-3.0) % Baso % (Auto) 0.3 (0.0-1.0) % Sodium 142 (135-145) mmol/L Potassium 3.6 (3.6-5.0) mmol/L Chloride 107 (101-111) mmol/L Carbon Dioxide 27.0 (21.0-31.0) mmol/L Anion Gap 11.6 BUN 14 (7-18) mg/dL Creatinine 0.6 (0.6-1.3) mg/dL Est Cr Clr Drug Dosing 125.92 mL/min Estimated GFR (MDRD) > 60 BUN/Creatinine Ratio 23.33 Glucose 118 H (74-105) mg/dL Lactic Acid 0.8 (0.5-2.2) mmol/L Calcium 9.2 (8.4-10.2) mg/dl Total Bilirubin 0.5 (0.2-1.0) mg/dL AST 17 (10-42) IU/L ALT 12 (10-60) IU/L Alkaline Phosphatase 72 (42-121) IU/L Total Protein 6.4 L (6.7-8.2) g/dl Albumin 3.7 (3.2-5.5) g/dl Globulin 2.7 Albumin/Globulin Ratio 1.37 Amylase 54 (28-100) U/L Lipase 26 (22-51) U/L HCG, Qual Urine Color (YELLOW) Urine Appearance (CLEAR) Urine pH (5.0-9.0) Ur Specific [place]cock (1.005-1.030) Urine Protein (NEGATIVE) Urine Glucose (UA) (NEGATIVE) Urine Ketones (NEGATIVE) Urine Occult Blood (NEGATIVE) Urine Nitrite (NEGATIVE) Urine Bilirubin (NEGATIVE) Urine Urobilinogen (0.2-1.0) mg/dL Ur Leukocyte Esterase (NEGATIVE) Urine RBC /HPF Urine WBC (0-5/HPF) /HPF Ur Epithelial Cells /HPF Amorphous Sediment (0/HPF) /HPF Urine Bacteria (0-FEW/HPF) /HPF 01/15/17 01/15/17 Range/Units 03:05 03:21 WBC (5.0-10.0) 10^3/uL RBC (4.2-5.4) 10^6/uL Hgb (12.0-16.0) g/dL Hct (37.0-47.0) % MCV (80-100) fL MCH (27.0-34.0) pg MCHC (33.0-35.0) g/dL Plt Count (150-450) 10^3/uL Neut % (Auto) (42.2-75.2) % Lymph % (Auto) (20.5-50.1) % [place] % (Auto) (2-8) % Eos % (Auto) (1.0-3.0) % Baso % (Auto) (0.0-1.0) % Sodium (135-145) mmol/L Potassium (3.6-5.0) mmol/L Chloride (101-111) mmol/L Carbon Dioxide (21.0-31.0) mmol/L Anion Gap BUN (7-18) mg/dL Creatinine (0.6-1.3) mg/dL Est Cr Clr Drug Dosing mL/min Estimated GFR (MDRD) BUN/Creatinine Ratio Glucose (74-105) mg/dL Lactic Acid (0.5-2.2) mmol/L Calcium (8.4-10.2) mg/dl Total Bilirubin (0.2-1.0) mg/dL AST (10-42) IU/L ALT (10-60) IU/L Alkaline Phosphatase (42-121) IU/L Total Protein (6.7-8.2) g/dl Albumin (3.2-5.5) g/dl Globulin Albumin/Globulin Ratio Amylase (28-100) U/L Lipase (22-51) U/L HCG, Qual Negative Urine Color Yellow (YELLOW) Urine Appearance Cloudy (CLEAR) Urine pH 7.0 (5.0-9.0) Ur Specific [place] 1.020 (1.005-1.030) Urine Protein Negative (NEGATIVE) Urine Glucose (UA) Negative (NEGATIVE) Urine Ketones Negative (NEGATIVE) Urine Occult Blood Negative (NEGATIVE) Urine Nitrite Negative (NEGATIVE) Urine Bilirubin Negative (NEGATIVE) Urine Urobilinogen 0.2 (0.2-1.0) mg/dL Ur Leukocyte Esterase Negative (NEGATIVE) Urine RBC 0-5 /HPF Urine WBC 0-5 (0-5/HPF) /HPF Ur Epithelial Cells Moderate H /HPF Amorphous Sediment Many H (0/HPF) /HPF Urine Bacteria Many H (0-FEW/HPF) /HPF Meds: Medications Discontinued Medications Generic Name Dose Route Start Last Admin Trade Name Lucia PRN Reason Stop Dose Admin Iopamidol 75 ml 01/15/17 03:29 01/15/17 04:19 Isovue-300 (61%) IVPUSH 01/15/17 03:30 75 ml ONETIME ONE Administration Departure - Departure Time of Disposition: 04:32 Disposition: Home, Self-Care 01 Condition: Good Clinical Impression: Constipation Qualifiers: Constipation type: unspecified constipation type Qualified Code(s): K59.00 - Constipation, unspecified - Discharge Information Instructions: Constipation, Adult, [id number] Additional Instructions: Increase fluids and fiber in diet. one bottle Mag Citrate this am follow up as needed - My Orders Last 24 Hours: My Active Orders 01/15/17 03:28 Abdomen Pelvis w Cont [CT] Urgent - Assessment/Plan Last 24 Hours: My Active Orders 01/15/17 03:28 Abdomen Pelvis w Cont [CT] Urgent
[2017-01-15 04:47] VITALS: BP 112/70
== END 2017-01-15 04:45 | disposition home or self-care (01) ==
LOC: DL.ED 02:42
DX: K59.00 Constipation, unspecified (principal); F17.210 Nicotine dependence, cigarettes, uncomplicated
CPT/HCPCS: 36415; 74177; 80053; 81001; 82150; 83605; 83690; 84703; 85025; 99284; A9270; Q9967

== ENCOUNTER 2024-08-13 05:28 | Day surgery (SDC) | payer BC, OTHER, SELFPAY ==
[2024-08-13] MEDS ORDERED: Propofol 200 MG/20 ML SDV IV ONE (05:29)
[2024-08-13] MEDS ORDERED: Lidocaine 2% 20 ML MDV NERVRT ONE (05:29)
[2024-08-13] MEDS ORDERED: Dextrose 5%-0.45% NaCl 1,000 ML IV ONE (05:29)
[2024-08-13] MEDS ORDERED: Lactated Ringers 500 ML IV ONE (05:29)
[2024-08-13] MEDS ORDERED: Dextrose 5%-0.45% NaCl 1,000 ML IV SCH (05:30)
[2024-08-13] MEDS: Lactated Ringers 1,000 ML IV SCH (06:00)
[2024-08-13] MEDS ORDERED: Lidocaine 2% 20 ML MDV ONE (06:01)
[2024-08-13] MEDS ORDERED: Propofol 200 MG/20 ML SDV ONE (06:01)
[2024-08-13 08:21] VITALS: BP 108/73; PULSE 60
== END 2024-08-13 08:27 | disposition home or self-care (01) ==
LOC: DL.ENDO 05:28
PROVIDERS: ATTEND Internal Medicine Gastroenterology
DX: K29.50 Unspecified chronic gastritis without bleeding (principal); K31.89 Other diseases of stomach and duodenum
CPT/HCPCS: 43239; J2003; J2704; J7120; S5010; 00731